=== PATIENT | male | born 1960 | race Caucasian/White ===

== ENCOUNTER 2021-07-09 09:25 | Outpatient (CLI) | payer OTHER | END 2021-07-09 09:26 | disposition home or self-care (01) | LOC: LAB.N 09:25 | PROVIDERS: ATTEND Ophthalmology | DX: Z01.812 Encounter for preprocedural laboratory examination (principal); H25.812 Combined forms of age-related cataract, left eye; E11.9 Type 2 diabetes mellitus without complications; Z79.4 Long term (current) use of insulin; Z20.822 Contact with and (suspected) exposure to COVID-19 ==

== ENCOUNTER 2021-07-10 06:53 | Day surgery (SDC) | payer OTHER ==
[~2021-07-10 06:53] MED LIST: CYCLOPENTOLATE 1% OPHTH DROPS 2 ML ONE; KETOROLAC 0.45% OPHTH DROPS ONE; PHENYLEPHRINE 2.5% OPHTH 2 ML DROPS ONE; PROPARACAINE 0.5% OPHTH DROPS 15 ML ONE
[2021-07-10] MEDS ORDERED: LACTATED RINGERS 1,000 ML IV ONE (07:27)
--- NOTE | 2021-07-10 07:46 | ANESTHESIA ---
Pre-Anesthesia VS, & Labs - Diagnosis left eye cataract - Procedure Left CATIOL Vital Signs: Temp Pulse Resp BP Pulse Ox 36.7 C 75 16 148/78 H 97 07/10/21 07:00 07/10/21 07:00 07/10/21 07:00 07/10/21 07:00 07/10/21 07:00 Height: 5 ft 10 in Weight (kg): 107 kg Body Mass Index: 33.8 BMI Classification: Obese - NPO >8 hours - Lab Results Current Lab Results: Laboratory Tests 07/10/21 07:10: POC Whole Bld Glucose 131 H Lab results reviewed: Yes Home Medications and Allergies Home Medications: Ambulatory Orders Aspirin [Vazalore] 1 tab ORAL BID 07/10/21 Glipizide [Glipizide Xl] 1 tab ORAL BID 07/10/21 Insulin Glargine [Lantus Solostar] 24 units SQ BID 07/10/21 Lisinopril [Zestril] 1 tab ORAL DAILY 07/10/21 Metformin HCl [Metformin ER Gastric] 1 tab ORAL BID 07/10/21 Metoprolol Succinate [Kapspargo Sprinkle] 1 tab ORAL DAILY 07/10/21 Vit D3/Vit K2/Calc Frutoborate [Move Free [id number]-[id number]] 1 each PO DAILY 07/10/21 amLODIPine [Norvasc] 2 l ORAL DAILY 07/10/21 Aspirin [Vazalore] 1 tab ORAL BID 07/10/21 Glipizide [Glipizide Xl] 1 tab ORAL BID 07/10/21 Insulin Glargine [Lantus Solostar] 24 units SQ BID 07/10/21 Lisinopril [Zestril] 1 tab ORAL DAILY 07/10/21 Metformin HCl [Metformin ER Gastric] 1 tab ORAL BID 07/10/21 Metoprolol Succinate [Kapspargo Sprinkle] 1 tab ORAL DAILY 07/10/21 Vit D3/Vit K2/Calc Frutoborate [Move Free [id number]-[id number]] 1 each PO DAILY 07/10/21 amLODIPine [Norvasc] 2 l ORAL DAILY 07/10/21 Allergies/Adverse Reactions: Allergies Allergy/AdvReac Type Severity Reaction Status Date / Time No Known Drug Allergies Allergy Verified 07/10/21 07:27 Anes History & Medical History - Anesthetic History Anesthesia Complications: reports: No previous complications Family history of Anesthesia Complications: Denies Family history of Malignant Hyperthermia: Denies - Medical History Cardiovascular: reports: Hypertension, Arrhythmia Pulmonary: reports: None Gastrointestinal: reports: Colon polyps Urinary: reports: None Musculoskeletal: reports: Osteoarthritis Endocrine/Autoimmune: reports: Type 2 diabetes Skin: reports: None - Surgical History General: reports: Colonoscopy Orthopedic: reports: Hip replacement, Arthroscopic surgery Exam General: Alert, Oriented x3, Cooperative, No acute distress Dental: WNL Mouth Openin Fingerbreadth Neck Mobility: Normal Mallampati classification: II Plan Anesthesia Type: MAC Consent for Procedure(s) Verified and Reviewed: Yes Code Status: Attempt Resuscitation ASA classification: 3-Severe systemic disease Is this case an emergency?: No
[2021-07-10] MEDS ORDERED: TRIAMCIN/MOXIFLOX OPHTHALMIC 0.6 ML VIAL IO ONE ×2 (08:15→13:21)
[2021-07-10] MEDS ORDERED: BRIMONIDINE 0.2% OPHTH DROPS 5 ML OPTH ONE (08:15)
[2021-07-10] MEDS ORDERED: BSS/LIDOCAINE/EPINEPHRINE 1 ML SYRINGE IO ONE (08:15)
[2021-07-10] MEDS ORDERED: EPINEPHrine 1 MG/ML AMP IR ONE (08:15)
[2021-07-10] MEDS ORDERED: TIMOLOL 0.5% OPHTH DROPS OPTH ONE (08:15)
[2021-07-10] MEDS ORDERED: VANCOMYCIN OPHTHALMI 8MG/0.8ML 8 MG/0.8 ML SYRINGE IO ONE (08:16)
[2021-07-10] MEDS ORDERED: PROPARACAINE 0.5% OPHTH DROPS 15 ML EACHEYE ONE (08:16)
[2021-07-10] MEDS ORDERED: MIDAZOLAM 2 MG/2 ML VIAL ONE (08:18)
[2021-07-10] MEDS ORDERED: LACTATED RINGERS 700 ML IV ONE (08:32)
--- NOTE | 2021-07-10 08:39 | OPERATIVE REPORT ---
Operative Report - Other Other Information/Narrative: Date of Surgery: 07/10/21 Preop Dx: Visually significant cataract left eye. This was the first cataract surgery. Postop Dx: Same Procedure: Phacoemulsification with posterior chamber intraocular lens implant left eye Surgeon: Dr. Chris Benavidez Anesthesia: Monitored anesthesia care Complications: None Operative Indications: This is a 60-year-old M with progressive vision loss in the left eye due to 2+ nuclear sclerotic and 2+ posterior subcapsular cataract. Best corrected visual acuity was 20/30 with glare to [id number] in the left eye. Indications for surgery were: - Overall decrease in vision - Difficulty seeing words on a computer screen - Difficulty reading - Difficulty seeing words, closed captions, or game scores on TV - Difficulty seeing street signs - Difficulty driving in low light or at night - Difficulty driving at night because of headlights from other vehicles - Difficulty with glare or bright lights in any situation - Difficulty tracking a golf ball - Decreased acuity with firearms The patient was consented at length concerning the risks and benefits of cataract surgery after which the patient expressed a desire to proceed with surgery. Operative Procedure: The patient was taken into OR#3 and placed under monitored anesthesia care. A surgical time-out was conducted confirming correct patient, correct procedure, and correct surgical site. The patient was given topical anesthesia and then prepped and draped in the usual sterile fashion. The eye was entered at the 6 and 3 oclock positions. Intracameral Shugarcaine was injected into the anterior chamber followed by a dispersive viscoelastic. A continuous-tear curvilinear capsulorhexis was performed. The nucleus was hydrodissected and phacoemulsified. The cortex was evacuated using automated infusion and aspiration. A cohesive viscoelastic was injected into the capsular bag and a 23.5 diopter intraocular lens was inserted into the bag. Infusion and aspiration were used to evacuate the viscoelastic materials from the eye. The wounds were hydrated and the eye inflated to physiologic pressure using balanced salt solution. Approximately 0.25ml of a mixture of triamcinolone and moxifloxacin was injected trans-sclerally into the vitreous in the inferotemporal quadrant using a 30 gauge cannula. An additional 0.55ml of a mixture of triamcinolone, moxifloxacin, and vancomycin was injected subconjunctivally in the superior quadrant for infection and inflammation prophylaxis. Wound integrity was checked with Weck-Trena sponges. The patient was taken from the operating room in good condition and given post-op instructions.
--- NOTE | 2021-07-10 08:41 | ANESTHESIA POST OP EVALUATION ---
Anesthesia Post Eval - Post Anesthesia Eval Vitals: Last Vital Signs Temp 37.1 C 07/10/21 08:26 Pulse 71 07/10/21 08:35 Resp 16 07/10/21 08:35 BP 143/83 H 07/10/21 08:35 Pulse Ox 96 07/10/21 08:35 CV Function Including HR & BP: Stable Pain Control: Satisfactory Nausea & Vomiting: Negative Mental Status: Baseline Respiratory Status: Airway Patent Hydration Status: Satisfactory Anesthesia Complications: None
[2021-07-10 08:55] VITALS: BP 143/68
[2021-07-10] MEDS ORDERED: EPINEPHrine 1 MG/ML AMP ONE (13:21)
[2021-07-10] MEDS ORDERED: BSS/LIDOCAINE/EPINEPHRINE 1 ML VIAL ONE (13:22)
[2021-07-10] MEDS ORDERED: TIMOLOL 0.5% OPHTH DROPS ONE (13:22)
[2021-07-10] MEDS ORDERED: BRIMONIDINE 0.2% OPHTH DROPS 5 ML ONE (13:22)
== END 2021-07-10 06:54 | disposition home or self-care (01) ==
LOC: SDS 06:53
PROVIDERS: ATTEND Ophthalmology
DX: E11.36 Type 2 diabetes mellitus with diabetic cataract (principal); H25.812 Combined forms of age-related cataract, left eye; Z79.4 Long term (current) use of insulin; Z79.84 Long term (current) use of oral hypoglycemic drugs; E66.9 Obesity, unspecified; Z68.33 Body mass index [BMI] 33.0-33.9, adult
CPT/HCPCS: 66984; A9270; J3490; J7120

== ENCOUNTER 2021-08-13 09:19 | Outpatient (CLI) | payer OTHER | END 2021-08-13 09:20 | disposition home or self-care (01) | LOC: LAB.N 09:19 | PROVIDERS: ATTEND Ophthalmology | DX: Z01.812 Encounter for preprocedural laboratory examination (principal); H25.811 Combined forms of age-related cataract, right eye; E11.9 Type 2 diabetes mellitus without complications; Z79.4 Long term (current) use of insulin; Z20.822 Contact with and (suspected) exposure to COVID-19 ==

== ENCOUNTER 2021-08-14 05:53 | Day surgery (SDC) | payer OTHER ==
[2021-08-14] MEDS ORDERED: KETOROLAC 0.45% OPHTH DROPS ONE (06:16)
[2021-08-14] MEDS ORDERED: LACTATED RINGERS 1,000 ML IV ONE (06:16)
[2021-08-14] MEDS ORDERED: PHENYLEPHRINE 2.5% OPHTH 2 ML DROPS ONE (06:16)
[2021-08-14] MEDS ORDERED: CYCLOPENTOLATE 1% OPHTH DROPS 2 ML ONE (06:16)
[2021-08-14] MEDS ORDERED: PROPARACAINE 0.5% OPHTH DROPS 15 ML ONE (06:16)
[2021-08-14] MEDS ORDERED: EPINEPHrine 1 MG/ML AMP ONE (07:03)
[2021-08-14] MEDS ORDERED: TRIAMCIN/MOXIFLOX OPHTHALMIC 0.6 ML VIAL IO ONE ×2 (07:03→07:42)
[2021-08-14] MEDS ORDERED: BRIMONIDINE 0.2% OPHTH DROPS 5 ML ONE (07:03)
[2021-08-14] MEDS ORDERED: TIMOLOL 0.5% OPHTH DROPS ONE (07:04)
[2021-08-14] MEDS ORDERED: BSS/LIDOCAINE/EPINEPHRINE 1 ML VIAL ONE (07:04)
[2021-08-14] MEDS ORDERED: MIDAZOLAM 2 MG/2 ML VIAL ONE (07:09)
--- NOTE | 2021-08-14 07:10 | ANESTHESIA ---
Pre-Anesthesia VS, & Labs - Diagnosis R cataract - Procedure R PhacoIOL Vital Signs: Temp Pulse Resp BP Pulse Ox 36.4 C L 84 16 137/82 H 97 08/14/21 06:19 08/14/21 06:19 08/14/21 06:19 08/14/21 06:19 08/14/21 06:19 Height: 5 ft 10 in Weight (kg): 106 kg Body Mass Index: 33.5 BMI Classification: Obese - NPO >8 hours - Lab Results Current Lab Results: Laboratory Tests 08/14/21 06:35: POC Whole Bld Glucose 99 Home Medications and Allergies Aspirin [Vazalore] 1 tab ORAL BID 07/10/21 Glipizide [Glipizide Xl] 1 tab ORAL BID 07/10/21 Insulin Glargine [Lantus Solostar] 24 units SQ BID 07/10/21 Lisinopril [Zestril] 1 tab ORAL DAILY 07/10/21 Metformin HCl [Metformin ER Gastric] 1 tab ORAL BID 07/10/21 Metoprolol Succinate [Kapspargo Sprinkle] 1 tab ORAL DAILY 07/10/21 Vit D3/Vit K2/Calc Frutoborate [Move Free Ajrsp-Ulsfwy-[id number]] 1 each PO DAILY 07/10/21 amLODIPine [Norvasc] 2 l ORAL DAILY 07/10/21 Allergies/Adverse Reactions: Allergies Allergy/AdvReac Type Severity Reaction Status Date / Time No Known Drug Allergies Allergy Verified 08/14/21 06:08 Anes History & Medical History - Anesthetic History Anesthesia Complications: reports: No previous complications Family history of Anesthesia Complications: Denies Family history of Malignant Hyperthermia: Denies - Medical History Cardiovascular: reports: Hypertension, Arrhythmia Pulmonary: reports: None Gastrointestinal: reports: Colon polyps Urinary: reports: None Musculoskeletal: reports: Osteoarthritis Endocrine/Autoimmune: reports: Type 2 diabetes Skin: reports: None - Surgical History General: reports: Colonoscopy Eyes Ears Nose Throat (EENT): reports: Cataracts Orthopedic: reports: Hip replacement, Arthroscopic surgery Exam General: Alert, Oriented x3, Cooperative Dental: WNL Mouth Openin Fingerbreadth Neck Mobility: Normal Mallampati classification: II Thyromental Distance: 4-6 cm Respiratory: Lungs clear Cardiovascular: Regular rate Plan Anesthesia Type: MAC Consent for Procedure(s) Verified and Reviewed: Yes Code Status: Attempt Resuscitation ASA classification: 2-Mild systemic disease Is this case an emergency?: No
[2021-08-14] MEDS ORDERED: BRIMONIDINE 0.2% OPHTH DROPS 5 ML OPTH ONE (07:40)
[2021-08-14] MEDS ORDERED: EPINEPHrine 1 MG/ML AMP IR ONE (07:40)
[2021-08-14] MEDS ORDERED: TIMOLOL 0.5% OPHTH DROPS OPTH ONE (07:41)
[2021-08-14] MEDS ORDERED: PROPARACAINE 0.5% OPHTH DROPS 15 ML EACHEYE ONE (07:42)
[2021-08-14] MEDS ORDERED: BSS/LIDOCAINE/EPINEPHRINE 1 ML SYRINGE IO ONE (07:42)
[2021-08-14] MEDS ORDERED: VANCOMYCIN OPHTHALMI 8MG/0.8ML 8 MG/0.8 ML SYRINGE IO ONE (07:43)
[2021-08-14] MEDS ORDERED: fentaNYL 100 MCG/2 ML VIAL ONE (07:50)
[2021-08-14] MEDS ORDERED: LACTATED RINGERS 700 ML IV ONE (07:52)
--- NOTE | 2021-08-14 08:01 | OPERATIVE REPORT ---
Operative Report - Other Other Information/Narrative: Date of Surgery: 08/14/21 Preop Dx: Visually significant cataract right eye. Cataract surgery was performed in the left eye on . Postop Dx: Same Procedure: Phacoemulsification with posterior chamber intraocular lens implant right eye Surgeon: Dr. Chris Benavidez Anesthesia: Monitored anesthesia care Complications: None Operative Indications: This is a 60-year-old M with progressive vision loss in the right eye due to 2+ nuclear sclerotic and 2+ posterior subcapsular cataract. Best corrected visual acuity was 20/25 with glare to 20/100 vision in the right eye. Indications for surgery were: - Overall decrease in vision - Difficulty seeing words on a computer screen - Difficulty reading - Difficulty seeing words, closed captions, or game scores on TV - Difficulty seeing street signs - Difficulty driving in low light or at night - Difficulty driving at night because of headlights from other vehicles - Difficulty with glare or bright lights in any situation - Difficulty tracking a golf ball - Decreased acuity with firearms The patient was consented at length concerning the risks and benefits of cataract surgery after which the patient expressed a desire to proceed with surgery. Operative Procedure: The patient was taken into OR#3 and placed under monitored anesthesia care. A surgical time-out was conducted confirming correct patient, correct procedure, and correct surgical site. The patient was given topical anesthesia and then prepped and draped in the usual sterile fashion. The eye was entered at the 6 and 3 oclock positions. Intracameral Shugarcaine was injected into the anterior chamber followed by a dispersive viscoelastic. A continuous-tear curvilinear capsulorhexis was performed. The nucleus was hydrodissected and phacoemulsified. The cortex was evacuated using automated i nfusion and aspiration. A cohesive viscoelastic was injected into the capsular bag and a 23.0 diopter intraocular lens was inserted into the bag. Infusion and aspiration were used to evacuate the viscoelastic materials from the eye. The wounds were hydrated and the eye inflated to physiologic pressure using balanced salt solution. Approximately 0.25ml of a mixture of triamcinolone and moxifloxacin was injected trans-sclerally into the vitreous in the inferotemporal quadrant using a 30 gauge cannula. An additional 0.55ml of a mixture of triamcinolone, moxifloxacin, and vancomycin was injected subconjunctivally in the superior quadrant for infection and inflammation prophylaxis. Wound integrity was checked with Weck-Trena sponges. The patient was taken from the operating room in good condition and given post-op instructions.
[2021-08-14 08:16] VITALS: BP 137/82
--- NOTE | 2021-08-14 14:54 | ANESTHESIA POST OP EVALUATION ---
Anesthesia Post Eval - Post Anesthesia Eval Vitals: Last Vital Signs Temp 36.5 C 08/14/21 08:15 Pulse 82 08/14/21 08:15 Resp 19 08/14/21 08:15 BP 137/82 H 08/14/21 08:15 Pulse Ox 95 08/14/21 08:15 CV Function Including HR & BP: Stable Pain Control: Satisfactory Nausea & Vomiting: Negative Mental Status: Baseline Respiratory Status: Airway Patent Hydration Status: Satisfactory Anesthesia Complications: None
== END 2021-08-14 05:54 | disposition home or self-care (01) ==
LOC: SDS 05:53
PROVIDERS: ATTEND Ophthalmology
DX: E11.36 Type 2 diabetes mellitus with diabetic cataract (principal); H25.811 Combined forms of age-related cataract, right eye; Z79.4 Long term (current) use of insulin; Z79.84 Long term (current) use of oral hypoglycemic drugs; E11.3291 Type 2 diabetes mellitus with mild nonproliferative diabetic retinopathy without macular edema, right eye; E66.9 Obesity, unspecified; Z68.33 Body mass index [BMI] 33.0-33.9, adult; Z98.42 Cataract extraction status, left eye
CPT/HCPCS: 66984; A9270; J3490; J7120